=== PATIENT | female | born 1960 | race African-American/Black ===

== ENCOUNTER 2024-12-15 22:26 | Inpatient (IN) | payer OTHER ==
[2024-12-15 22:54] LABS: Absolute Basophils 0.1 K/uL (0-0.5); Absolute Eosinophils 0.1 K/uL (0-0.5); Absolute Lymphocytes (CBC) 3.1 K/uL (0.7-4.9); Absolute Monocytes 0.6 K/uL (0.1-1.3); Absolute Neutrophil 4.6 K/uL (1.8-8.0); Basophils % 0.6 % (0-1.3); Eosinophils % 1.6 % (0-4.4); Hematocrit 32.2 % (36.0-45.0); Hemoglobin 10.9 g/dL (12.0-15.0); Lymphocytes % 36.5 % (15.3-44.8); MCH 27.7 pg (27.0-35.0); MCHC 33.7 g/dL (32.0-36.0); MCV 82.2 fL (80-100); MPV 9.5 fL (7.6-11.3); Monocytes % 7.3 % (3.3-12.3); Nucleated Red Blood Cells % 0.1 % (0-0); Platelets 328 thou/uL (152-406); RBC Red Blood Cell Count 3.92 M/uL (3.86-4.86)
[2024-12-15 22:58] LABS: Protime INR 1.06
[2024-12-15 23:12] LABS: ALT/SGPT 34 U/L (13-56); AST/SGOT 31 U/L (15-37); Albumin 3.6 g/dL (3.4-5.0); Albumin/Globulin Ratio 0.8 (1.1-1.8); Alkaline Phosphatase 82 U/L (45-117); Anion Gap 7.4 mEq/L (5.0-15.0); BUN Blood Urea Nitrogen 41 mg/dL (7-18); Bicarbonate 35 mEq/L (21-32); Bilirubin Total 0.3 mg/dL (0.2-1.0); Globulin 4.3 g/dL (2.3-3.5); Glomerular Filtration Rate 38 ml/min (=/>90); Glucose Level 115 mg/dL (74-106); NT PRO-BNP 1031 pg/mL (<125); Potassium 3.4 mEq/L (3.5-5.1); Protein, Total 7.9 g/dL (6.4-8.2); Sodium Level 141 mEq/L (136-145); Troponin High Sensitivity 17.1 pg/mL (<58.9)
[2024-12-15] MEDS ORDERED: ONDANSETRON 4 MG/2 ML VIAL ONE (23:15)
[2024-12-15] MEDS ORDERED: ASPIRIN 81 MG CHEWABLE TABLET ONE (23:16)
[2024-12-15] MEDS ORDERED: MORPHINE 4 MG/ML SYR ONE (23:18)
[2024-12-15] MEDS ORDERED: NA CHLORIDE 0.9% 0 ML ONE (23:19)
[2024-12-15] MEDS ORDERED: FAMOTIDINE 20 MG/2 ML VIAL IV ONE (23:19)
[2024-12-15 23:24] LABS: Bilirubin Direct < 0.2 mg/dL (0-0.2); Bilirubin Indirect, Calculated 0.1 mg/dL (0.2-0.8)
--- NOTE | 2024-12-16 00:45 | RAD REPORT ---
EXAM DESCRIPTION: CT CHEST ANGIOGRAPHY WITH IV CONTRAST CLINICAL HISTORY: 64 years Female Chest pain. COMPARISON: Radiograph of Chest 12/15/[address] Chest [id number]/08/2024. TECHNIQUE: Images were obtained in axial, coronal and sagittal planes. Intravenous contrast administration. 3-D MIP imaging was performed. This exam was performed according to our departmental dose-optimization program which includes use of Automated Exposure Control, adjustment of the mA and/or kV according to patient size and/or use of iterative reconstruction technique. FINDINGS: No filling defects pulmonary arteries bilaterally. No aortic dissection or dilatation. No right heart strain. No pericardial or pleural effusions bilaterally. No adenopathy. Enlarged heart. No lung parenchymal infiltrates or nodules seen. Increased pulmonary vascularity. No pneumothorax. No acute osseous abnormality. Retained fluid and debris within the stomach. Mild ascites. IMPRESSION: 1. No evidence for pulmonary embolus. No aortic dissection or dilatation. No infiltrates seen. 2. Enlarged heart with moderate pulmonary congestion. Electronically signed by: Christina Garcia MD 12/16/2024 12:37 AM CDT Due to temporary technical issues with the PACS/[employer] reporting system, reports are being john d by the in-house radiologist without review as a courtesy to ensure prompt reporting the interpreting radiologist is fully responsible for the content of the report. Transcribed Date/Time: 12/16/2024 12:45 AM
[2024-12-16] MEDS ORDERED: NA CHLORIDE 0.9% 500 ML ONE (01:12)
--- NOTE | 2024-12-16 01:51 | EDPHYS ---
Physician Documentation [facility] Name: Pilar Jay Age: 64 yrs Sex: Female : 1960 Arrival Date: 12/15/2024 Time: 22:26 Bed 20 Private MD: ED Physician Dell James HPI: 12/15 22:31 This 64 yrs old Black Female presents to ER via Unassigned with complaints of Chest sp4 Pain. 22:41 62-year-old female with history of chronic back pain, hypertension, fluid retention, sp4 presents with acute onset midsternal chest pain after eating crawfish. Patient's medications include lisinopril 2.5 mg daily, hydrocodone 10 as needed pain, metoprolol twice a day, torsemide 20 mg p.o. twice a day, pregabalin 150 mg p.o. twice a day, Flexeril 10 mg p.o. twice a day, and patient denies being on blood thinners. History of spinal neurostimulator.. Historical: - Allergies: 22:46 NKDA; ay - Immunization history:: Client reports receiving the 2nd dose of the Covid vaccine, Pneumococcal vaccine is up to date, Flu vaccine is up to date. - Infectious Disease History:: Denies. - Family history:: not pertinent. - Social history:: Smoking status: Patient denies any tobacco usage or history of. ROS: 22:41 Constitutional: Negative for fever, chills, and weight loss, positive midsternal chest sp4 pain 22:41 All other systems are negative, Exam: 22:41 Constitutional: This is a well developed, well nourished patient who is awake, alert, sp4 and in no acute distress. Head/Face: Normocephalic, atraumatic. Eyes: Pupils equal round and reactive to light, extra-ocular motions intact. Lids and lashes normal. Conjunctiva and sclera are not injected. Cornea within normal limits. Periorbital areas with no swelling, redness, or edema. ENT: Nares patent. No nasal discharge, no septal abnormalities noted. Tympanic membranes are normal and external auditory canals are clear. Oropharynx with no redness, swelling, or masses, exudates, or evidence of obstruction, uvula midline. Mucous membranes moist. Neck: Trachea midline, no thyromegaly or masses palpated, and no cervical lymphadenopathy. Supple, full range of motion without nuchal rigidity, or vertebral point tenderness. Chest/axilla: Normal chest wall appearance and motion. Nontender with no deformity. No lesions are appreciated. Cardiovascular: Regular rate and rhythm with a normal S1 and S2. No gallops, murmurs, or rubs. Normal PMI, no JVD. No pulse deficits. Respiratory: Lungs have equal breath sounds bilaterally, clear to auscultation and percussion. No rales, rhonchi or wheezes noted. No increased work of breathing, no retractions or nasal flaring. Abdomen/GI: Soft, with normal bowel sounds. No distension or tympany. No guarding or rebound. No evidence of tenderness throughout. Back: No spinal tenderness. No costovertebral tenderness. Skin: Warm, dry with normal turgor. Normal color with no rashes, no lesions, and no evidence of cellulitis. MS/ Extremity: Pulses equal, no cyanosis. Neurovascular intact. Full, normal range of motion. Neuro: Awake and alert, GCS 15, oriented to person, place, time, and situation. Cranial nerves II-XII grossly intact. Motor strength 5/5 in all extremities. Sensory grossly intact. Psych: Awake, alert, with orientation to person, place and time. Behavior, mood, and affect are within normal limits 22:41 ECG was reviewed by the Attending Physician. EKG at 22 33 normal sinus rhythm biatrial enlargement left axis deviation left ventricular hypertrophy no ST elevation or depression. Vital Signs: 22:30 BP 141 / 72; Pulse 90; Resp 19; Temp 99.5(O); Pulse Ox 98% on R/A; ay 22:45 BP 121 / 71; Pulse 87; Resp 20; Pulse Ox 99% on R/A; ay 23:07 Weight 83.91 kg; Height 5 ft. 3 in. ; ay 23:30 BP 140 / 79; Pulse 85; Resp 17; Pulse Ox 99% on R/A; ay 12/16 00:30 BP 129 / 67; Pulse 89; Resp 15; Pulse Ox 94% ; ay 12/15 23:07 Body Mass Index 32.77 (83.91 kg, 160.02 cm) ay [place] Coma Score: 12/15 22:41 Eye Response: spontaneous(4). Motor Response: obeys commands(6). Verbal Response: sp4 oriented(5). Total: 15. 22:52 Eye Response: spontaneous(4). Motor Response: obeys commands(6). Verbal Response: ay oriented(5). Total: 15. MDM: 22:32 Medical Screening Exam initiated sp4 12/16 01:49 ED course: EXAM DESCRIPTION: CT CHESTANGIOGRAPHYWITH IV CONTRAST CLINICAL HISTORY: 64 sp4 years Female Chest pain. COMPARISON: Radiograph of Chest 12/15/[address] Chest [id number]/08/2024. TECHNIQUE: Images were obtained in axial, coronal and sagittal planes. Intravenous contrast administration. 3-D MIP imaging was performed. This exam was performed according to our departmental dose-optimization program which includes use of Automated Exposure Control, adjustment of the mA and/or kV according to patient size and/or use of iterative reconstruction technique. FINDINGS: No filling defects pulmonary arteries bilaterally. No aortic dissection or dilatation. No right heart strain. No pericardial or pleural effusions bilaterally. No adenopathy. Enlarged heart. No lung parenchymal infiltrates or nodules seen. Increased pulmonary vascularity. No pneumothorax. No acute osseous abnormality. Retained fluid and debris within the stomach. Mild ascites. IMPRESSION: 1. No evidence for pulmonary embolus. No aortic dissection or dilatation. No infiltrates seen. 2. Enlarged heart with moderate pulmonary congestion. . ED course: TIME OF STUDY: 12/15/2024 10:32 PM CDT REASON FOR EXAM: CHEST PAIN COMPARISON: None. FINDINGS: AP view of the chest was obtained, chest 1 view. Lungs: Normal lung volume. No mass, or consolidation. Normal pulmonary vascularity.. Surgical clips are noted in the right axilla. Pleura: No pneumothorax. There is no pleural effusion. Heart and Mediastinum: Cardiac silhouette is borderline enlarged.. The aorta is mildly tortuous. Bones: No acute bony abnormality.. IMPRESSION: 1. No acute cardiopulmonary process. . 01:51 Differential diagnosis: acute myocardial infarction, acute pericarditis, anxiety, sp4 coronary artery disease chest wall pain, esophagitis, gastritis. HEART Score: History: Moderately Suspicious (1), ECG: Non specific repolarization disturbance / LBTB / PM (1), Age: > 45 and < 65 years (1), Risk Factors: > or = 3 Risk factors for atherosclerotic disease (2), Troponin: < or = 1 x Normal Limit (0), Total Score = 5. The patient was given aspirin in the Emergency Department. Data reviewed: vital signs, nurses notes, old medical records, lab test result(s), EKG, radiologic studies, CT scan, plain films. Consideration of Admission/Observation Patient was admitted/placed on observation. Escalation of care including admission/observation considered. Management of patient was discussed with the following: Hospitalist: Axel Vega 12/15 22:32 Order name: Basic Metabolic Panel; Complete Time: 23:34 sp4 12/15 22:32 Order name: CBC with Diff; Complete Time: 23:34 sp4 12/15 22:32 Order name: LFT's; Complete Time: 23:34 sp4 12/15 22:32 Order name: Magnesium; Complete Time: 23:34 sp4 12/15 22:32 Order name: NT PRO-BNP; Complete Time: 23:34 sp4 12/15 22:32 Order name: PT-INR; Complete Time: 23:34 sp4 12/15 22:32 Order name: Troponin HS; Complete Time: 23:34 sp4 12/16 02:23 Order name: Urinalysis w/ reflexes EDMS 12/16 02:23 Order name: CBC with Automated Diff EDMS 12/16 02:23 Order name: CBC with Automated Diff EDMS 12/16 02:23 Order name: Comprehensive Metabolic Panel EDMS 12/16 02:23 Order name: Comprehensive Metabolic Panel EDMS 12/16 02:23 Order name: Lipid Profile EDMS 12/16 02:23 Order name: Lipid Profile EDMS 12/16 02:23 Order name: Troponin High Sensitivity EDMS 12/16 02:23 Order name: Troponin High Sensitivity; Complete Time: 08:14 EDMS 12/16 02:23 Order name: Troponin High Sensitivity EDMS 12/16 02:23 Order name: Troponin High Sensitivity EDMS 12/15 22:32 Order name: XRAY Chest (1 view); Complete Time: 08:14 sp4 12/15 22:41 Order name: CT Chest For PE Angio sp4 12/16 02:27 Order name: Echo with Doppler EDMS 12/15 22:32 Order name: Cardiac monitoring; Complete Time: 22:43 sp4 12/15 22:32 Order name: EKG - Nurse/Tech; Complete Time: 22:43 sp4 12/15 22:32 Order name: IV Saline Lock; Complete Time: :43 sp4 12/15 22:32 Order name: Labs collected and sent; Complete Time: :43 sp4 12/15 22:32 Order name: O2 Per Protocol; Complete Time: :43 sp4 12/15 22:32 Order name: O2 Sat Monitoring; Complete Time: :43 sp4 EC/12 22:33 Rate is 88 beats/min. Rhythm is regular, Normal Sinus Rhythm. Left axis deviation sp4 noted. [place] interval is normal. QRS interval is normal. QT interval is normal. No Q waves. T waves are Normal. No ST changes noted. Clinical impression: No evidence of ischemia. Interpreted by me. Reviewed by me. Administered Medications: 23:39 Drug: morphine IVP or IV 6 mg IVP once over 4 mins Route: IVP; Infused Over: 4 mins; ay Site: left antecubital; 12/16 00:31 Follow up: Response: No adverse reaction ay 12/15 23:39 Drug: Ondansetron IVP 4 mg IVP once; over 2 minutes Route: IVP; Site: left antecubital; ay 12/16 00:31 Follow up: Response: No adverse reaction ay 12/15 23:39 Drug: Aspirin PO Chewable Tablet 324 mg PO once; 81 mg tablets x 4 Route: PO; ay 12/16 00:32 Follow up: Response: No adverse reaction ay 12/15 23:39 Drug: Famotidine IVP 20 mg IVP once; dilute with 10 mL 0.9% NaCl; give over 2 minutes ay Route: IVP; Site: left antecubital; 12/16 00:32 Follow up: Response: No adverse reaction ay 12/15 23:39 Drug: NS 0.9% IV 500 ml 500 ml IV at 1 bolus once; to be given as a bolus over 30 ay minutes Volume: 500 ml; Route: IV; Rate: 1 bolus; Site: left antecubital; 12/16 02:52 Follow up: IV Status: Completed infusion ay 02:00 Drug: Furosemide IVP 20 mg IVP once; give over 2 minutes Route: IVP; Site: left ay antecubital; 02:52 Follow up: Response: No adverse reaction ay Disposition Summary: 12/16/24 01:51 Hospitalization Ordered Notes: Hospitalization Status: Observation sp4 Provider: Raul Reyna sp4 Condition: Stable sp4 Problem: new sp4 Symptoms: have improved sp4 Bed/Room Type: Standard sp4 Location: Telemetry/MedSurg (Inpatient)(12/16/24 12:20) [facility] Room Assignment: 217(12/16/24 12:20) [facility] Diagnosis - CHF exacerbation, pulmonary edema, unstable angina sp4 - Acute diastolic (congestive) heart failure sp4 Forms: - Medication Reconciliation Form sp4 - SBAR form sp4 - Leadership Thank You Letter sp4 Signatures: Dispatcher [employer] EDAZ Bladimir Llamas, PLANT MAINTENANCE WORKER-C PLANT MAINTENANCE WORKER-Cla1 Nimco Bob, RN RN ha1 Elena Deleon [facility] Dell James MD MD sp4 Kirk Hernandez, RN RN ay Corrections: (The following items were deleted from the chart) 12/15 22:42 22:42 Chest For PE Angio+CT.RAD.BRZ ordered. [facility] EDAZ 12/16 06:39 01:51 Telemetry/MedSurg (observation) sp4 ha1 06:39 01:51 sp4 ha1 12:20 06:39 [facility] ER HOLD ha1 bc6 12:20 06:39 ERHOLD- ha1 bc6
--- NOTE | 2024-12-16 01:51 | ER ---
Nurse's Notes [facility] Name: Pilar Jay Age: 64 yrs Sex: Female : 1960 Arrival Date: 12/15/2024 Time: 22:26 Bed 20 Private MD: Diagnosis: CHF exacerbation, pulmonary edema, unstable angina;Acute diastolic (congestive) heart failure Presentation: 12/15 22:30 Chief complaint: Patient states: Chest pain. ay 22:30 Coronavirus screen: Client denies travel out of the [place] in the last 14 days. Ebola ay Screen: No symptoms or risks identified at this time. Initial Sepsis Screen: Does the patient meet any 2 criteria? No. Patient's initial sepsis screen is negative. Does the patient have a suspected source of infection? No. Patient's initial sepsis screen is negative. Risk Assessment: Do you want to hurt yourself or someone else? Patient reports no desire to harm self or others. Note Pt WI with a c/o chest pain and mild SOB that started about 10 minutes ago. Alert and oriented, denies N/V. Onset of symptoms was December 15, 2024 at 22:20. 22:30 Method Of Arrival: Ambulatory ay 22:30 Acuity: JENN 3 ay Triage Assessment: 22:46 General: Appears distressed, uncomfortable, Behavior is cooperative, anxious. Pain: ay Complains of pain in chest Pain does not radiate. Pain currently is 9 out of 10 on a pain scale. Quality of pain is described as crushing. EENT: No signs and/or symptoms were reported regarding the EENT system. Neuro: Level of Consciousness is awake, alert, obeys commands, Oriented to person, place, time, situation, Speech is normal. Cardiovascular: Reports chest pain, Denies nausea, vomiting, Capillary refill < 3 seconds Rhythm is sinus rhythm Chest pain is located in epigastric area. Respiratory: Airway is patent Respiratory effort is even, unlabored, Respiratory pattern is regular, symmetrical. GI: Abdomen is distended, Abd is rigid X 4 quads. : No signs and/or symptoms were reported regarding the genitourinary system. Derm: No signs and/or symptoms reported regarding the dermatologic system. Musculoskeletal: No signs and/or symptoms reported regarding the musculoskeletal system. Historical: - Allergies: 22:46 NKDA; ay - Immunization history:: Client reports receiving the 2nd dose of the Covid vaccine, Pneumococcal vaccine is up to date, Flu vaccine is up to date. - Infectious Disease History:: Denies. - Family history:: not pertinent. - Social history:: Smoking status: Patient denies any tobacco usage or history of. Screenin:[address] [facility] ED Fall Risk Assessment (Adult) History of falling in the last 3 months, ay including since admission No falls in past 3 months (0 pts) Confusion or Disorientation No (0 pts) Intoxicated or Sedated No (0 pts) Impaired Gait No (0 pts) Mobility Assist Device Used No (0 pt) Altered Elimination No (0 pt) Score/Fall Risk Level 0 - 2 = Low Risk Oriented to surroundings, Maintained a safe environment, Educated pt \T\ family on fall prevention, incl call for assistance when getting out of bed. Abuse screen: Denies threats or abuse. Nutritional screening: No deficits noted. Tuberculosis screening: No symptoms or risk factors identified. Assessment: 22:52 General: See Triage Assessment. ay 12/16 00:38 Reassessment: Patient appears in no apparent distress at this time. Patient is alert, ay oriented x 3, equal unlabored respirations, skin warm/dry/pink. 07:15 Reassessment: SEE [email or web address] FOR CONTINUED DOCUMENTATION. db Vital Signs: 12/15 22:30 BP 141 / 72; Pulse 90; Resp 19; Temp 99.5(O); Pulse Ox 98% on R/A; ay 22:45 BP 121 / 71; Pulse 87; Resp 20; Pulse Ox 99% on R/A; ay 23:07 Weight 83.91 kg; Height 5 ft. 3 in. ; ay 23:30 BP 140 / 79; Pulse 85; Resp 17; Pulse Ox 99% on R/A; ay 12/16 00:30 BP 129 / 67; Pulse 89; Resp 15; Pulse Ox 94% ; ay 12/15 23:07 Body Mass Index 32.77 (83.91 kg, 160.02 cm) ay [place] Coma Score: 12/15 22:41 Eye Response: spontaneous(4). Motor Response: obeys commands(6). Verbal Response: sp4 oriented(5). Total: 15. 22:52 Eye Response: spontaneous(4). Motor Response: obeys commands(6). Verbal Response: ay oriented(5). Total: 15. ED Course: 22:26 Patient arrived in ED. jj6 22:31 Dell James MD is Attending Physician. sp4 22:41 Kirk Hernandez, RN is Primary Nurse. ay 22:43 Basic Metabolic Panel Sent. ha1 22:43 CBC with Diff Sent. ha1 22:43 LFT's Sent. ha1 22:43 Magnesium Sent. ha1 22:43 NT PRO-BNP Sent. ha1 22:43 PT-INR Sent. ha1 22:43 Troponin HS Sent. ha1 22:46 Triage completed. ay 22:52 EKG done, by ED staff, reviewed by Dell James MD. Inserted saline lock: 20 gauge ay in left antecubital area, using aseptic technique. Patient maintains SpO2 saturation greater than 95% on room air. 22:52 telemetry monitor on. Pulse ox on. NIBP on. ay 22:54 XRAY Chest (1 view) In Process Unspecified. EDMS 23:59 CT Chest For PE Angio In Process Unspecified. EDMS 12/16 01:50 Raul Reyna MD is Hospitalizing Provider. sp4 06:46 Repeat lab(s) drawn. by az, sent to lab. sa1 13:15 No provider procedures requiring assistance completed. Patient admitted, IV remains in db place. 13:15 Patient has correct armband on for positive identification. Side rails up X2. Warm db blanket given. Pillow given. Administered Medications: 12/15 23:39 Drug: morphine IVP or IV 6 mg IVP once over 4 mins Route: IVP; Infused Over: 4 mins; ay Site: left antecubital; 12/16 00:31 Follow up: Response: No adverse reaction ay 12/15 23:39 Drug: Ondansetron IVP 4 mg IVP once; over 2 minutes Route: IVP; Site: left antecubital; ay 12/16 00:31 Follow up: Response: No adverse reaction ay 12/15 23:39 Drug: Aspirin PO Chewable Tablet 324 mg PO once; 81 mg tablets x 4 Route: PO; ay 12/16 00:32 Follow up: Response: No adverse reaction ay 12/15 23:39 Drug: Famotidine IVP 20 mg IVP once; dilute with 10 mL 0.9% NaCl; give over 2 minutes ay Route: IVP; Site: left antecubital; 12/16 00:32 Follow up: Response: No adverse reaction ay 12/15 23:39 Drug: NS 0.9% IV 500 ml 500 ml IV at 1 bolus once; to be given as a bolus over 30 ay minutes Volume: 500 ml; Route: IV; Rate: 1 bolus; Site: left antecubital; 12/16 02:52 Follow up: IV Status: Completed infusion ay 02:00 Drug: Furosemide IVP 20 mg IVP once; give over 2 minutes Route: IVP; Site: left ay antecubital; 02:52 Follow up: Response: No adverse reaction ay Medication: 13:15 VIS not applicable for this client. db Outcome: 01:51 Decision to Hospitalize by Provider. cruzito 13:15 Admitted to Med/surg accompanied by tech, room 217, on monitor, with chart, db 13:15 Condition: stable 13:15 Instructed on the need for admit, 13:31 Patient left the ED. kj2 Signatures: Dispatcher [employer] EDMS Otilia Castro jj6 Nimco Bob, RN RN ha1 Katie Shankar RN RN db Dell James MD MD sp4 Sultan haider English Krystal, RAAD RN kj2 Kirk Hernandez RN RN ay
[2024-12-16] MEDS ORDERED: FUROSEMIDE 20 MG/ 2ML VIAL ONE (02:06)
[2024-12-16] MEDS ORDERED: ACETAMINOPHEN 325 MG TABLET PO PRN (02:14)
[2024-12-16] MEDS ORDERED: ALBUTEROL 2.5 MG/3 ML NEB SOL NEB PRN (02:14)
--- NOTE | 2024-12-16 02:14 | P.HP ---
Certification for Inpatient Patient admitted to: Inpatient With expected LOS: >2 Midnights Practitioner: I am a practitioner with admitting privileges, knowledge of patient current condition, hospital course, and medical plan of care. Services: Services provided to patient in accordance with Admission requirements found in Title 42 Section 412.3 of the Code of Federal Regulations Patient History Date of Service: 12/16/24 Reason for admission: Chest Pain / SOB History of Present Illness: 64 yrs old Female with past medical history of chronic back pain, hypertension, fluid retention came in with chest pain and shortness of breath after eating crawfish. Patient has been on spinal neurostimulator for chronic back pain. Chest pain started yesterday after dinner retrosternal location. Nonradiating. Pressure-like feeling intermittent 8 out of 10 in severity, denies any diaphoresis. No nausea vomiting or diarrhea. No fever or chills. At the time of interview chest pain slightly better. Patient also states is associated with shortness of breath. Even with minimal activities. Patient was assessed in the ER and is admitted for further management of CHF exacerbation and chest pain to rule out ACS Home medications list reviewed: Yes - Past Medical/Surgical History Past Medical History: Reviewed- Non-Contributory -: HTN, chronic back pain Past Surgical History: Reviewed- Non-Contributory -: History of neurostimulator - Social History Smoking Status: Never smoker Review of Systems 10-point ROS is otherwise unremarkable Physical Examination - Vital Signs Temperature: 97.2 F Blood Pressure: 136/70 Pulse: 68 Respirations: 18 Pulse Ox (%): 94 - Physical Exam General: Alert, In no apparent distress, Oriented x3 HEENT: Atraumatic, Normocephalic Neck: Supple Respiratory: Diminished, Crackles/rales Cardiovascular: Regular rate/rhythm, Normal S1 S2 Capillary refill: <2 Seconds Gastrointestinal: Soft and benign, W/out hepatosplenomegaly Musculoskeletal: No clubbing, Swelling Integumentary: No rashes, No breakdown Neurological: Normal speech, Normal strength at 5/5 x4 extr Lymphatics: No axilla or inguinal lymphadenopathy - Studies Laboratory Data (last 24 hrs) 12/15/24 12/15/24 12/15/24 22:40 22:40 22:40 WBC 8.50 Hgb 10.9 L Hct 32.2 L Plt Count 328 PT 12.0 INR 1.06 Sodium 141 Potassium 3.4 L BUN 41 H Creatinine 1.53 H Glucose 115 H Magnesium 2.0 Total Bilirubin 0.3 AST 31 ALT 34 Alkaline Phosphatase 82 Assessment and Plan - Plan Acute on chronic CHF possibly systolic/diastolic Monitor closely on telemetry Started on aggressive diuresis X-ray findings consistent with CHF Oxygen supplementation Will try to wean down oxygen requirement Continue home medications Titrate as needed Will obtain an echocardiogram Cardiology consult CT chest negative for PE Chest pain to rule out ACS Will trend cardiac enzymes Will monitor telemetry Started on aspirin and statin EKG did not show any acute changes suggestive of ischemia Patient denies any chest pain at the time of interview Hypertension Antihypertensives titrated Continue home medications and titrate as needed Hyperlipidemia Continue statin SNEHA Monitor renal parameters Electrolytes monitor and replace accordingly GI/DVT prophylaxis Advanced directive full code Discharge Plan: Home Plan to discharge in: 48 Hours - Advance Directives Does patient have a Living Will: No Does patient have a Durable POA for Healthcare: No - Code Status/Comfort Care Code Status: Full Code Time Spent Managing Pts Care (In Minutes): 48
[2024-12-16] MEDS: FUROSEMIDE 40 MG/4 ML VIAL IV SCH (02:25)
--- NOTE | 2024-12-16 05:00 | RAD REPORT ---
TIME OF STUDY: 12/15/2024 10:32 PM CDT REASON FOR EXAM: CHEST PAIN COMPARISON: None. FINDINGS: AP view of the chest was obtained, chest 1 view. Lungs: Normal lung volume. No mass, or consolidation. Normal pulmonary vascularity.. Surgical clips are noted in the right axilla. Pleura: No pneumothorax. There is no pleural effusion. Heart and Mediastinum: Cardiac silhouette is borderline enlarged.. The aorta is mildly tortuous. Bones: No acute bony abnormality.. IMPRESSION: 1. No acute cardiopulmonary process. Electronically signed by: Jace Mendoza MD 12/15/2024 11:04 PM CDT RP Due to temporary technical issues with the PACS/[employer] reporting system, reports are being john d by the in-house radiologist without review as a courtesy to ensure prompt reporting the interpreting radiologist is fully responsible for the content of the report. Transcribed Date/Time: 12/16/2024 5:00 AM
[2024-12-16] MEDS: HYDROCODONE/APAP 5/325 MG TAB PO PRN (06:00)
[2024-12-16] MEDS ORDERED: ONDANSETRON 4 MG/2 ML VIAL IV PRN (06:18)
[2024-12-16 06:19] VITALS: BMI 32.8
[2024-12-16] MEDS: ASPIRIN EC 81 MG TAB PO SCH (09:00)
--- NOTE | 2024-12-16 09:33 | P.PN ---
Date of Service: 12/16/24 Subjective: No further episodes of chest pain overnight Doing well today so far Troponin trending flat ROS: 10 point ROS as noted above, otherwise negative Physical exam GEN: Alert, oriented, NAD HEENT: Normal conjunctiva, sclera anicteric CV: Regular rate and rhythm, no edema Pulm: Nonlabored respirations on room air ABD: Soft, nontender, nondistended MSK: No joint tenderness Integumentary: No rashes Neuro: Normal speech, normal affect Vitals reviewed Assessment: Chest pain rule out ACS Chronic CHFunknown EF Hypertension Chronic pain Plan: Chest pain rule out ACS Episode occurred while walking through the parking lot after eating crawfish States multiple hours of aching chest pain nonradiating, not associated with diaphoresis, near syncope, shortness of breath Has never had a stress/echo or cath Troponin trending flat so far Denies history of GERD or similar symptoms in the past Cardiology consulted/echo ordered Chronic CHFunknown EF Continue with IV diuresis for now does not appear grossly overloaded Some pulmonary congestion noted on CT Hypertension Chronic pain Continue home medications when verified DVT PPX: Lovenox Code status: Global Sales Manager Spent Managing Pts Care (In Minutes): 35
[2024-12-16] MEDS ORDERED: ASPIRIN EC 81 MG TAB PO ONE (09:54)
[2024-12-16] MEDS ORDERED: FUROSEMIDE 40 MG/4 ML VIAL ONE (09:54)
[2024-12-16 10:54] LABS: Specific Gravity 1.019 (1.005-1.030); Urine Bilirubin NEGATIVE (Negative); Urine Blood Negative (Negative); Urine Clarity Clear (Clear); Urine Color Colorless (Yellow); Urine Glucose NEGATIVE (Negative); Urine Ketones NEGATIVE (Negative); Urine Microscopic Reflex YN NO UMIC; Urine Nitrite NEGATIVE (Negative); Urine Protein NEGATIVE (Negative); Urine Urobilinogen Normal (Normal); Urine pH 6.5 (5.0-7.0)
[2024-12-16 11:51] VITALS: O2SAT 97
--- NOTE | 2024-12-16 13:40 | ECHO ---
HEIGHT: 5 ft 3 in WEIGHT: 185 lb 0 oz DATE OF STUDY: 12/16/[address]: Aashish Reyna DO 2-DIMENSIONAL: YES M.MODE: YES DOPPLER: YES COLOR FLOW: YES TDS: NO PORTABLE: YES DEFINITY: NO BUBBLE STUDY: NO DIAGNOSIS: CONGESTIVE HEART FAILURE CARDIAC HISTORY: CATHERIZATION: NO SURGERY: NO PROSTHETIC VALVE: NO PACEMAKER: NO MEASUREMENTS (cm) DIASTOLIC (NORMALS) SYSTOLIC (NORMALS) IVSd 0.9 (0.6-1.2) LA Diam 2.6 (1.9-4.0) LVEF 30-35% LVIDd 6.4 (3.5-5.7) LVIDs 5.3 (2.0-3.5) %FS 18% LVPWd 0.9 (0.6-1.2) Ao Diam 2.6 (2.0-3.7) 2 DIMENSIONAL ASSESSMENT: RIGHT ATRIUM: NORMAL LEFT ATRIUM: NORMAL RIGHT VENTRICLE: NORMAL LEFT VENTRICLE: SEVERELY DILATED TRICUSPID VALVE: MILD TRICUSPID REGURGITATION MITRAL VALVE: MODERATE MITRAL ANNULAR CALCIFICATION, MILD MITRAL REGURGITATION PULMONIC VALVE: NORMAL AORTIC VALVE: NORMAL PERICARDIAL EFFUSION: NONE AORTIC ROOT: NORMAL LEFT VENTRICULAR WALL MOTION: SEVERE GLOBAL HYPOKINESIS. DOPPLER/COLOR FLOW: GRADE I DIASTOLIC DYSFUNCTION. COMMENTS: 1. SEVERELY REDUCED LEFT VENTRICULAR FUNCTION, EJECTION FRACTION 30-35%, SEVERE GLOBAL HYPOKINESIS. 2. GRADE I DIASTOLIC DYSFUNCTION. 3. MILD MITRAL REGURGITATION. TECHNOLOGIST: REBECA ESCOBEDO
--- NOTE | 2024-12-16 13:49 | P.CNS ---
Date of Consult: 12/16/24 Chief Complaint: Chest Pain / SOB History of Present Illness: Patient with PMH of Systolic heart failure, presented with worsening SOB and HERNANDEZ associated with chest pain that started yesterday, mid chest, no radiation, no palpitations, no syncope. Allergies No Known Allergies Allergy (Unverified 12/16/24 06:41) Home medications list reviewed: Yes - Past Medical/Surgical History -: HTN, chronic back pain -: History of neurostimulator Review of Systems 10-point ROS is otherwise unremarkable Physical Examination Temp Pulse Resp BP Pulse Ox 98 F 67 16 106/63 96 12/16/24 12:00 12/16/24 12:00 12/16/24 12:00 12/16/24 12:00 12/16/24 12:00 General: Alert, In no apparent distress HEENT: Atraumatic, PERRLA, Mucous membr. moist/pink, EOMI, Sclerae nonicteric Neck: Supple, 2+ carotid pulse no bruit, No LAD, Without JVD or thyroid abnormality Respiratory: Clear to auscultation bilaterally, Normal air movement Cardiovascular: Regular rate/rhythm, Normal S1 S2 Gastrointestinal: Normal bowel sounds, No tenderness Musculoskeletal: No tenderness Integumentary: No rashes Neurological: Normal gait, Normal speech, Normal tone, Normal affect Lymphatics: No axilla or inguinal lymphadenopathy Laboratory Data (last 24 hrs) 12/15/24 12/15/24 12/15/24 22:40 22:40 22:40 WBC 8.50 Hgb 10.9 L Hct 32.2 L Plt Count 328 PT 12.0 INR 1.06 Sodium 141 Potassium 3.4 L BUN 41 H Creatinine 1.53 H Glucose 115 H Magnesium 2.0 Total Bilirubin 0.3 AST 31 ALT 34 Alkaline Phosphatase 82 - Problems (1) Acute on chronic combined systolic and diastolic heart failure Current Visit: Yes Status: Acute Plan: Lasix 40 mg IV Q8hrs patient is on toresmide 20 mg daily at home. continue to monitor input and output and electrolytes. continue Toprol XL 50 mg daily echo shows severe reduced LV systolic function. (2) Chest pain Current Visit: Yes Status: Acute Plan: Non cardiac, reporduscible on exam, troponin negative, patient got low EF, she will need coronary angiogram to rule out CAD as reason for her CHF, she mention she is scheduled for one late december but she wants to get it done here, if she is here until friday then we might be able to do it.
[2024-12-16] MEDS: ATORVASTATIN 40 MG TAB PO SCH (21:36)
[2024-12-17 04:31] LABS: Absolute Eosinophils 0.2 K/uL (0-0.5); Absolute Lymphocytes (CBC) 2.8 K/uL (0.7-4.9); Absolute Monocytes 0.6 K/uL (0.1-1.3); Absolute Neutrophil 3.2 K/uL (1.8-8.0); Basophils % 0.6 % (0-1.3); Eosinophils % 2.3 % (0-4.4); Hematocrit 31.4 % (36.0-45.0); Hemoglobin 10.4 g/dL (12.0-15.0); Lymphocytes % 40.9 % (15.3-44.8); MCH 27.2 pg (27.0-35.0); MCV 82.5 fL (80-100); MPV 9.2 fL (7.6-11.3); Monocytes % 9.5 % (3.3-12.3); Neutrophils % 46.7 % (41.7-73.7); Platelets 288 thou/uL (152-406); RBC Red Blood Cell Count 3.81 M/uL (3.86-4.86); Red Cell Distribution Width 15.7 % (12.1-15.2)
[2024-12-17 04:51] LABS: Albumin/Globulin Ratio 0.8 (1.1-1.8); Bilirubin Total 0.3 mg/dL (0.2-1.0)
[2024-12-17] MEDS: MORPHINE 2 MG/ML SYR IV PRN (05:13)
[2024-12-17] MEDS ORDERED: CYCLOBENZAPRINE 10 MG TAB PO PRN (06:13)
[2024-12-17] MEDS: METOPROLOL XL 50 MG TAB PO SCH (09:00)
[2024-12-17] MEDS: lisinopriL 5 MG TAB PO SCH (09:42)
[2024-12-17] MEDS: PREGABALIN 150 MG CAP PO SCH (09:42)
[2024-12-17] MEDS: FERROUS SULFATE 325 MG TAB PO SCH (09:42)
[2024-12-17] MEDS: HYDROCODONE/APAP 10/325 TAB PO PRN (09:46)
[2024-12-17 12:34] VITALS: BP 103/49; TEMP 98.3
--- NOTE | 2024-12-17 13:59 | P.PN ---
Subjective Date of Service: 12/17/24 Chief Complaint: Chest Pain / SOB Subjective: No new changes, No C/O voiced, Tolerating diet, Ambulating, Improving Review of Systems 10-point ROS is otherwise unremarkable Physical Examination - Vital Signs Temperature: 98.3 F Blood Pressure: 103/49 Pulse: 87 Respirations: 16 Pulse Ox (%): 96 - Physical Exam General: Alert, In no apparent distress HEENT: Atraumatic, PERRLA, EOMI Neck: Supple, JVD not distended Respiratory: Clear to auscultation bilaterally, Normal air movement Cardiovascular: Regular rate/rhythm, Normal S1 S2 Gastrointestinal: Normal bowel sounds, No tenderness Musculoskeletal: No tenderness Integumentary: No rashes Neurological: Normal speech, Normal tone, Normal affect Lymphatics: No axilla or inguinal lymphadenopathy - Studies Medications List Reviewed: Yes Assessment And Plan - Current Problems (Diagnosis) (1) Acute on chronic combined systolic and diastolic heart failure Current Visit: Yes Status: Acute Plan: Patient diuresed well with IV lasix and want to go home resume toresmide 20 mg daily at home. continue Toprol XL 50 mg daily continue lisinopril add Farxiga 10 mg daily echo shows severe reduced LV systolic function. (2) Chest pain Current Visit: Yes Status: Acute Plan: Non cardiac, reproducible on exam, troponin negative, patient got low EF, she will need coronary angiogram to rule out CAD as reason for her CHF, she mention she is scheduled for one late december with her refinish technician.
--- NOTE | 2024-12-17 14:43 | EKG ---
Test Date: 2024-12-15 Test Time: 22:33:42 Insulation Estimator: MEASUREMENT RESULTS: Intervals: Rate: 88 DE: 176 QRSD: 94 QT: 356 QTc: 430 [place]: P: 74 DE: 176 QRS: -40 T: 99 INTERPRETIVE STATEMENTS: Normal sinus rhythm Biatrial enlargement Left axis deviation Left ventricular hypertrophy with repolarization abnormality Abnormal ECG No previous ECG available for comparison Electronically Signed On 12-17-24 14:40:57 CDT by Angus Almazan
--- NOTE | 2024-12-17 15:54 | P.DS ---
Admission Date: 12/16/24 Discharge Date: 12/17/24 Disposition: ROUTINE DISCHARGE Discharge Condition: GOOD Reason for Admission: Chest Pain / SOB Brief History of Present Illness: 64 yrs old Female with past medical history of chronic back pain, hypertension, fluid retention came in with chest pain and shortness of breath after eating crawfish. Patient has been on spinal neurostimulator for chronic back pain. Chest pain started yesterday after dinner retrosternal location. Nonradiating. Pressure-like feeling intermittent 8 out of 10 in severity, denies any diaphoresis. No nausea vomiting or diarrhea. No fever or chills. At the time of interview chest pain slightly better. Patient also states is associated with shortness of breath. Even with minimal activities. Patient was assessed in the ER and is admitted for further management of CHF exacerbation and chest pain to rule out ACS Hospital Course: Assessment: Chest pain rule out ACS Chronic systolic CHF Hypertension Chronic pain Patient was admitted to the hospital after experiencing chest pain. She was in town visiting her family and went out to eat crawfish, after finishing her meal when walking through the parking lot to her vehicle she developed onset of severe aching like chest pain that was nonradiating in nature and lasted for a couple hours. It was not associated with any dyspnea, palpitations, near syncope or diaphoresis. She denies similar episodes in the past, does not typically have issues with indigestion/GERD. She was evaluated in the emergency department initial high-sensitivity troponin was 17.1, it trended flat/remained normal throughout her hospitalization. She has noted to have chronic congestive heart failure and takes torsemide at home, she was diuresed with IV Lasix during hospitalization and had improvement in some of her lower extremity edema. She was seen by cardiology in the hospitalization had an echocardiogram performed which showed severely reduced left ventricular ejection fraction of 30 to 35% with severe global hypokinesis, grade 1 diastolic dysfunction and mild mitral regurgitation. Patient reports a known ejection fraction of around 25% in the past. She also underwent a CTA of her chest during her stay in the emergency department which was negative for pulmonary embolism or other acute findings. She has remained chest pain-free during her hospitalizations and had negative troponins, she is stable for discharge and outpatient follow-up. Cardiology here does recommend ischemic workup given her underlying heart failure with reduced ejection fraction, she denies ever having a coronary angiogram in the past. She prefers to have this done with her local lab animal technologist in [place], she will be discharged to follow-up closely with her lab animal technologist, she has an appointment coming up soon. Home medications should be continued as previously taken. Vital Signs/Physical Exam: Temp Pulse Resp BP Pulse Ox 98.3 F 87 16 103/49 L 96 12/17/24 13:59 12/17/24 13:59 12/17/24 13:59 12/17/24 13:59 12/17/24 13:59 General: Alert, In no apparent distress, Oriented x3 HEENT: Atraumatic, PERRLA Neck: Supple, JVD not distended Respiratory: Clear to auscultation bilaterally, Normal air movement Cardiovascular: Regular rate/rhythm, Normal S1 S2 Gastrointestinal: Normal bowel sounds, No tenderness Musculoskeletal: No tenderness Integumentary: No rashes Neurological: Normal speech, Normal affect Laboratory Data at Discharge: WBC 6.80 thou/uL (4.3-10.9) 12/17/24 04:05 Hgb 10.4 g/dL (12.0-15.0) L 12/17/24 04:05 Hct 31.4 % (36.0-45.0) L 12/17/24 04:05 Plt Count 288 thou/uL (152-406) 12/17/24 04:05 PT 12.0 SECONDS (10-13.0) 12/15/24 22:40 INR 1.06 12/15/24 22:40 Sodium 139 mEq/L (136-145) 12/17/24 04:05 Potassium 4.0 mEq/L (3.5-5.1) 12/17/24 04:05 BUN 39 mg/dL (7-18) H 12/17/24 04:05 Creatinine 1.21 mg/dL (0.55-1.02) H 12/17/24 04:05 Glucose 115 mg/dL (74-106) H 12/17/24 04:05 Magnesium 2.0 mg/dL (1.6-2.4) 12/15/24 22:40 Total Bilirubin 0.3 mg/dL (0.2-1.0) 12/17/24 04:05 AST 34 U/L (15-37) 12/17/24 04:05 ALT 34 U/L (13-56) 12/17/24 04:05 Alkaline Phosphatase 78 U/L (45-117) 12/17/24 04:05 Triglycerides 180 mg/dL (<150) H 12/17/24 04:05 Cholesterol 171 mg/dL (<200) 12/17/24 04:05 HDL Cholesterol 52 mg/dL (40-60) 12/17/24 04:05 Cholesterol/HDL Ratio 3.29 12/17/24 04:05 Home Medications: Cyclobenzaprine [Flexeril*] 10 mg PO TID PRN 12/17/24 Ferrous Sulfate [Ferrous Sulfate*] 325 mg PO DAILY 12/17/24 Lisinopril [Zestril] 2.5 mg PO DAILY 12/17/24 Metoprolol Succinate [Toprol Xl*] 50 mg PO DAILY 12/17/24 Pregabalin [Lyrica] 1 cap PO BID 12/17/24 Torsemide [Demadex*] 20 mg PO DAILY 12/17/24 Physician Discharge Instructions: Patient was admitted to the hospital after experiencing chest pain. She was in town visiting her family and went out to eat crawfish, after finishing her meal when walking through the parking lot to her vehicle she developed onset of severe aching like chest pain that was nonradiating in nature and lasted for a couple hours. It was not associated with any dyspnea, palpitations, near syncope or diaphoresis. She denies similar episodes in the past, does not typically have issues with indigestion/GERD. She was evaluated in the emergency department initial high-sensitivity troponin was 17.1, it trended flat/remained normal throughout her hospitalization. She has noted to have chronic congestive heart failure and takes torsemide at home, she was diuresed with IV Lasix during hospitalization and had improvement in some of her lower extremity edema. She was seen by cardiology in the hospitalization had an echocardiogram performed which showed severely reduced left ventricular ejection fraction of 30 to 35% with severe global hypokinesis, grade 1 diastolic dysfunction and mild mitral regurgitation. Patient reports a known ejection fraction of around 25% in the past. She also underwent a CTA of her chest during her stay in the emergency department which was negative for pulmonary embolism or other acute findings. She has remained chest pain-free during her hospitalizations and had negative troponins, she is stable for discharge and outpatient follow-up. Cardiology here does recommend ischemic workup given her underlying heart failure with reduced ejection fraction, she denies ever having a coronary angiogram in the past. She prefers to have this done with her local lab animal technologist in [place], she will be discharged to follow-up closely with her lab animal technologist, she has an appointment coming up soon. Home medications should be continued as previously taken. Diet: AHA Activity: Ad baljit Followup: NONE,NONE [Primary Care Provider] - 1-2 Weeks Time spent managing pt's care (in minutes): 46
== END 2024-12-17 14:43 | disposition home or self-care (01) | DRG 291 ==
LOC: ER 22:26 → ERHOLD 12-16 02:14 → 2ND 12-16 13:05
PROVIDERS: ADMIT Family Medicine; ATTEND Hospitalist
DX: I11.0 Hypertensive heart disease with heart failure (principal); I50.23 Acute on chronic systolic (congestive) heart failure; N17.9 Acute kidney failure, unspecified; I20.0 Unstable angina; E78.5 Hyperlipidemia, unspecified; G89.29 Other chronic pain; M54.9 Dorsalgia, unspecified; Z79.899 Other long term (current) drug therapy
CPT/HCPCS: 36415; 71045; 71275; 80048; 80053; 80061; 80076; 81003; 83735; 83880; 84484; 85025; 85610; 93005; 93306; 94760; 96361; 96374; 96375; 99285; J1940; J2270; J2405; J7030; J7040; Q9967